=== PATIENT | female | born 1940 | race Caucasian/White ===

== ENCOUNTER 2017-09-02 11:31 | Emergency (ER) | payer OTHER ==
[~2017-09-02] VITALS: Ht 157.5 cm; Wt 81.6 kg
[2017-09-02 14:08] LABS: HEMATOCRIT 42.9 % (36.0-46.0); HEMOGLOBIN 14.1 G/DL (11.9-15.5); MCH 29.7 PG (29.0-34.0); MCHC 32.9 G/DL (30.0-36.0); MCV 90.5 FL (83-99); PLATELET COUNT 259 K/uL (156-360); RBC DIS.WIDTH-CV 13.3 % (11.8-14.6); RBC DIS.WIDTH-SD 44.6 % (39-53); RED BLOOD COUNT 4.74 M/uL (3.80-5.20); WHITE BLOOD COUNT 6.6 K/uL (4.1-10.2)
[2017-09-02 14:18] LABS: CHLORIDE 103 mEq/L (99-109); POTASSIUM 4.2 mEq/L (3.7-5.4); SODIUM 141 mEq/L (136-147)
[2017-09-02 14:19] LABS: D-DIMER ELISA < 150.00 ng/mLDDU (<230)
[2017-09-02 14:20] LABS: GLUCOSE 96 mg/dL (70-99)
[2017-09-02 14:24] LABS: CREATININE 0.7 mg/dL (0.6-1.3); GFR ESTIMATE (CALCULATED) > 59 mL/min/
[2017-09-02 14:25] LABS: UREA NITROGEN (BUN) 13 mg/dL (9-23)
[2017-09-02] MEDS ORDERED: MOTRIN600 MG PO (14:27)
[2017-09-02 15:58] VITALS: BP 134/67
== END 2017-09-02 16:01 | disposition home or self-care (01) ==
LOC: EME 11:31
PROVIDERS: Physician Assistant
DX: M25.561 Pain in right knee (principal); M25.461 Effusion, right knee; Z85.038 Personal history of other malignant neoplasm of large intestine; Z90.49 Acquired absence of other specified parts of digestive tract
CPT/HCPCS: 80048; 85027; 85379; 99281; 99284